=== PATIENT | male | born 1980 | race Two or more races ===

== ENCOUNTER 2022-11-01 21:21 | Emergency (ER) | payer SELFPAY | END 2022-11-01 23:00 | disposition left against medical advice (07) | LOC: EDBD 21:21 → ER 21:21 | DX: R53.1 Weakness (principal); Z00.8 Encounter for other general examination; Z59.00 Homelessness unspecified; Z53.21 Procedure and treatment not carried out due to patient leaving prior to being seen by health care provider ==